=== PATIENT | male | born 1985 | race Caucasian/White ===

== ENCOUNTER 2018-02-12 22:05 | Emergency (ER) | payer SELFPAY ==
[2018-02-12 23:16] LABS: URINE BLOOD (Dip) POC Negative (NEGATIVE); URINE GLUCOSE (Dip) POC Negative (NEGATIVE); URINE KETONES (Dip) POC Negative (NEGATIVE); URINE LEUKOCYTE EST (Dip) POC Negative (NEGATIVE); URINE NITRITE (Dip) POC Negative (NEGATIVE); URINE TOTAL PROTEIN POC Trace (NEGATIVE)
[2018-02-12] MEDS: AZITHROMYCIN 250 MG TAB PO (23:29)
[2018-02-12] MEDS: CEFTRIAXONE 250 MG INJ IM (23:31)
== END 2018-02-13 00:30 | disposition home or self-care (01) ==
LOC: FTE 02-13 00:30
DX: K64.9 Unspecified hemorrhoids (principal)
CPT/HCPCS: 81003; 87591; 96372; 99284-25